=== PATIENT | female | born 1970 | race African-American/Black ===

== ENCOUNTER 2021-06-12 18:59 | Emergency (ER) | payer BC ==
[~2021-06-12] VITALS: Ht 160 cm; Wt 100.0 kg
[2021-06-12 19:00] VITALS: BP 110/66
== END 2021-06-12 23:00 | disposition left against medical advice (07) ==
LOC: ER 22:54
DX: R68.89 Other general symptoms and signs (principal); Z53.21 Procedure and treatment not carried out due to patient leaving prior to being seen by health care provider